=== PATIENT | female | born 1955 | race Caucasian/White ===

== ENCOUNTER 2021-11-12 07:53 | Observation (INO) | payer OTHER ==
[2021-11-12 08:25] LABS: Absolute Lymphocytes (CBC) 1.7 K/uL (0.7-4.9); Hematocrit 32.1 % (36.0-45.0); Lymphocytes % 20.3 % (15.3-44.8); RBC Red Blood Cell Count 3.77 M/uL (3.86-4.86)
[2021-11-12 08:32] LABS: SARS-CoV-2 Antigen Rapid Res Negative (Negative)
[2021-11-12 08:33] LABS: Protime INR 1.18
[2021-11-12 08:45] LABS: Albumin 2.5 g/dL (3.4-5.0); Bilirubin Direct 0.2 mg/dL (0-0.2); Bilirubin Total 0.5 mg/dL (0.2-1.0); Magnesium 1.5 mg/dL (1.8-2.4); Potassium 3.9 mmol/L (3.5-5.1); Protein, Total 6.9 g/dL (6.4-8.2); Troponin High Sensitivity 19.9 pg/mL (<58.9)
--- NOTE | 2021-11-12 08:57 | RAD REPORT ---
EXAM DESCRIPTION: Stephy Single View11/12/2021 8:20 am CLINICAL HISTORY: Chest pain COMPARISON: none FINDINGS: The lungs appear clear of acute infiltrate. The heart is normal size IMPRESSION: No acute abnormalities displayed
[2021-11-12] MEDS ORDERED: NA CHLORIDE 0.9% 1,000 ML ONE (09:08)
[2021-11-12] MEDS ORDERED: PANTOPRAZOLE 40 MG INJ ONE (09:15)
[2021-11-12] MEDS ORDERED: ENOXAPARIN 100 MG/ML SYR SQ ONE (09:15)
[2021-11-12] MEDS ORDERED: METOPROLOL TAR 50 MG TAB ONE (09:27)
[2021-11-12] MEDS ORDERED: Magnesium Sulfate 2gm IVPB 2 G/50 ML BAG IV ONE (09:27)
--- NOTE | 2021-11-12 09:46 | RAD REPORT ---
EXAM DESCRIPTION: CT - Chest For Pe Angio - 11/12/2021 9:34 am CLINICAL HISTORY: Chest pain COMPARISON: None. TECHNIQUE: Dynamically enhanced axial 3 mm thick images of the chest were obtained during administra tion of <100> mL Isovue 370 IV contrast. Coronal and oblique reconstruction images were generated and reviewed. Exam utilizes a protocol for optimal evaluation of pulmonary arterial tree. Maximum intensity projections 3D imaging was utilized All CT scans are performed using dose optimization technique as appropriate and may include automated exposure control or mA/KV adjustment according to patient size. FINDINGS: Thrombus within the distal right main pulmonary, right lower lobe, right upper lobe, right middle lobe and left lower lobe pulmonary arteries. A thoracic aortic aneurysm is not noted. A small right pleural effusion. A pericardial effusion is not seen. A lung consolidation is not present. Small left adrenal adenoma is suspected IMPRESSION: Bilateral pulmonary emboli
--- NOTE | 2021-11-12 09:54 | ER ---
Nurse's Notes [facility] Name: Yulissa Brown Age: 65 yrs Sex: Female : 1955 Arrival Date: 11/12/2021 Time: 07:56 Bed 7 Private MD: Diagnosis: Chest pain, unspecified;Essential (primary) hypertension;Type 2 diabetes mellitus with hyperglycemia;Acute embolism and thrombosis of other specified deep vein of left lower extremity;Pulmonary embolism without acute cor pulmonale-BILATERAL Presentation: 11/12 08:07 Chief complaint: Patient's son or daughter states: Reports pt c/o chest pain that began ld1 this morning. In triage pt denies chest pain. Family reporting recent D/C from hospital due to stroke, [place], sepsis. Coronavirus screen: At this time, the client does not indicate any symptoms associated with coronavirus-19. Ebola Screen: No symptoms or risks identified at this time. Initial Sepsis Screen: Does the patient meet any 2 criteria? No. Patient's initial sepsis screen is negative. Does the patient have a suspected source of infection? No. Patient's initial sepsis screen is negative. Risk Assessment: Do you want to hurt yourself or someone else? Patient reports no desire to harm self or others. Onset of symptoms was November 12, 2021. 08:07 Method Of Arrival: Ambulatory ld1 08:07 Acuity: DAFNE 3 ld1 Triage Assessment: 08:09 General: Appears in no apparent distress. comfortable, Behavior is calm, cooperative, ld1 appropriate for age. Pain: Complains of pain in chest Pain does not radiate. Pain currently is 0 out of 10 on a pain scale. at worst was 8 out of 10 on a pain scale. Quality of pain is described as sharp, shooting, throbbing, Pain began suddenly, Is intermittent. EENT: No signs and/or symptoms were reported regarding the EENT system. Neuro: Level of Consciousness is awake, alert, obeys commands, Oriented to person, place, time, situation, Appropriate for age. Cardiovascular: Capillary refill < 3 seconds Patient's skin is warm and dry. Rhythm is sinus tachycardia. Respiratory: Airway is patent Respiratory effort is even, unlabored. GI: Abdomen is round non-distended. Historical: - Allergies: 08:09 Sulfa (Sulfonamide Antibiotics); ld1 - PMHx: 08:09 Diabetes mellitus; Hypertensive disorder; Myocardial infarction; CVA; ld1 Hypercholesterolemia; - PSHx: 08:09 Tonsillectomy; ld1 - Immunization history:: Adult Immunizations up to date, Client reports receiving the 2nd dose of the Covid vaccine. - Social history:: Smoking status: Patient denies any tobacco usage or history of. Patient/guardian denies using alcohol. Screenin:05 Abuse screen: Denies threats or abuse. Denies injuries from another. jh6 08:05 Nutritional screening: No deficits noted. Tuberculosis screening: No symptoms or risk jh6 factors identified. Fall Risk Secondary diagnosis (15 points) impaired mobility, CVA, IV access (20 points). Assessment: 08:46 General: Appears in no apparent distress. Behavior is calm, cooperative, Smells of. jh6 Pain: Complains of pain in anterior aspect of left upper chest and mid-sternal area Pain does not radiate. Pain currently is 2 out of 10 on a pain scale. Quality of pain is described as sharp, Pain began suddenly, 3 hours ago. Is continuous, Aggravated by deep breath. Neuro: Level of Consciousness is awake, obeys commands. Cardiovascular: Denies shortness of breath, Heart tones present Capillary refill < 3 seconds Clubbing of nail beds is absent JVD is absent Patient's skin is warm and dry. Pulses are all present. 10:00 Reassessment: Patient and/or family updated on plan of care and expected duration. Pain jg9 level reassessed. Patient is alert, oriented x 3, equal unlabored respirations, skin warm/dry/pink. 12:00 Reassessment: No changes from previously documented assessment. Patient and/or family jg9 updated on plan of care and expected duration. Pain level reassessed. Patient is alert, oriented x 3, equal unlabored respirations, skin warm/dry/pink. Vital Signs: 08:07 BP 134 / 69; Pulse 100; Resp 18; Temp 97.6(O); Pulse Ox 93% on R/A; Weight 113.4 kg; ld1 Height 5 ft. 5 in. (165.10 cm); Pain 0/10; 08:49 BP 125 / 57; Pulse 85; Resp 17; Pulse Ox 99% ; Pain 0/10; jh6 10:30 BP 129 / 70; Pulse 88; Resp 17 S; Pulse Ox 97% ; jg9 11:30 BP 124 / 72; Pulse 86; Resp 16 S; Pulse Ox 96% on R/A; jg9 08:07 Body Mass Index 41.60 (113.40 kg, 165.10 cm) ld1 ED Course: 07:56 Patient arrived in ED. mr 08:01 Mikey Delarosa MD is Attending Physician. vicente 08:09 Triage completed. ld1 08:09 Arm band placed on right wrist. ld1 08:10 Bed in low position. Call light in reach. Side rails up X2. Adult w/ patient. jh6 08:10 Client placed on continuous cardiac and pulse oximetry monitoring. NIBP monitoring jh6 applied. playground monitor on. Pulse ox on. NIBP on. 08:14 Nenita Menjivar, RN is Primary Nurse. jh6 08:20 SARS RAPID Sent. mb7 08:20 Basic Metabolic Panel Sent. mb7 08:20 CBC with Diff Sent. mb7 08:20 Magnesium Sent. mb7 08:20 D-Dimer Sent. mb7 08:20 LFT's Sent. mb7 08:20 NT PRO-BNP Sent. mb7 08:20 PT-INR Sent. mb7 08:20 Troponin HS Sent. mb7 08:20 Lipase Sent. mb7 08:20 Inserted saline lock: 20 gauge in right forearm, using aseptic technique. Blood jh6 collected. 08:20 Initial lab(s) drawn, by mo, EKG done, by ED staff, reviewed by Mikey GIBSON jh6 swab sent to lab. Patient maintains SpO2 saturation greater than 95% on room air. Oxygen administration via nasal cannula. 08:22 XRAY Chest (1 view) In Process Unspecified. EDMS 08:51 No provider procedures requiring assistance completed. jh6 09:36 CT Chest For PE Angio In Process Unspecified. EDMS 09:51 Jose Rueda is Hospitalizing Provider. vicente 10:14 US Extremity Venous W Compression Asad In Process Unspecified. EDMS 12:34 Patient admitted, IV remains in place. jg9 Administered Medications: 08:23 Not Given (Duplicate Order; pt took asa thjis amm): Aspirin Chewable Tablet 324 mg PO jh6 once; 81 mg tablets x 4 09:03 Drug: NS 0.9% 1000 ml Route: IV; Rate: 125 ml/hr; Site: right forearm; [facility] 09:11 Drug: Lovenox (enoxaparin) 1 mg/kg Route: Sub-Q; Site: right upper abdomen; [facility] 10:57 Follow up: Response: No adverse reaction j9 09:11 Drug: Pepcid (famotidine) 20 mg Route: IVP; Site: left antecubital; [facility] 10:57 Follow up: Response: No adverse reaction j9 10:38 Drug: Magnesium Sulfate 2 grams Route: IVPB; Infused Over: 2 hrs; Site: right [facility] antecubital; 12:35 Follow up: IV Status: Completed infusion; IV Intake: 50ml j9 10:38 Drug: HEParin 33364 units {Co-Signature: ss (Josie Hilliard RN).} Route: IV; Rate: per [facility] protocol; Site: right antecubital; 12:34 Follow up: Response: No adverse reaction j9 10:56 Drug: Lopressor (metoprolol TARTRATE) 50 mg Route: PO; 9 12:29 Follow up: Response: No adverse reaction j9 Medication: 12:34 VIS not applicable for this client. j9 Intake: 12:35 IV: 50ml; Total: 50ml. j9 Outcome: 09:54 Decision to Hospitalize by Provider. vicente 12:45 Admitted to Med/surg accompanied by nurse, family with patient, via wheelchair, room jg9 209, with chart, Report called to Nita Hankins RN 12:45 Condition: stable 12:46 Patient left the ED. j9 Signatures: Dispatcher [employer] EDMikey Joyce MD MD cha Rivera, Mary mr Dibbern, Lauren, RN RN ld1 Nenita Menjivar RN RN 6 Camila Amador mb7 Nenita Dodson, RN RN jg9 Josie Hilliard RN ss Corrections: (The following items were deleted from the chart) 08:58 08:49 BP 125 / 57; Pulse 85bpm; Resp 95bpm; Pulse Ox 99%; Pain 0/10; [place] [id number]
--- NOTE | 2021-11-12 09:54 | EDPHYS ---
Physician Documentation [facility] Name: Yulissa Brown Age: 65 yrs Sex: Female : 1955 Arrival Date: 11/12/2021 Time: 07:56 Bed 7 Private MD: ED Physician Mikey Delarosa HPI: 11/12 09:42 This 65 yrs old Female presents to ER via Ambulatory with complaints of Chest vicente Pain, Shortness Of Breath, Arm Pain. Historical: - Allergies: 08:09 Sulfa (Sulfonamide Antibiotics); ld1 - PMHx: 08:09 Diabetes mellitus; Hypertensive disorder; Myocardial infarction; CVA; ld1 Hypercholesterolemia; - PSHx: 08:09 Tonsillectomy; ld1 - Immunization history:: Adult Immunizations up to date, Client reports receiving the 2nd dose of the Covid vaccine. - Social history:: Smoking status: Patient denies any tobacco usage or history of. Patient/guardian denies using alcohol. ROS: 09:48 Constitutional: Negative for fever, chills, and weight loss, Eyes: Negative for injury, vicente pain, redness, and discharge, ENT: Negative for injury, pain, and discharge, Neck: Negative for injury, pain, and swelling, Respiratory: Negative for shortness of breath, cough, wheezing, and pleuritic chest pain, Abdomen/GI: Negative for abdominal pain, nausea, vomiting, diarrhea, and constipation, Back: Negative for injury and pain, : Negative for injury, bleeding, discharge, and swelling, MS/Extremity: Negative for injury and deformity, Skin: Negative for injury, rash, and discoloration, Neuro: Negative for headache, weakness, numbness, tingling, and seizure, Psych: Negative for depression, anxiety, suicide ideation, homicidal ideation, and hallucinations, Allergy/Immunology: Negative for hives, rash, and allergies, Endocrine: Negative for neck swelling, polydipsia, polyuria, polyphagia, and marked weight changes, Hematologic/Lymphatic: Negative for swollen nodes, abnormal bleeding, and unusual bruising. 09:48 Cardiovascular: Positive for chest pain, with cough. Exam: 09:48 Constitutional: This is a well developed, well nourished patient who is awake, alert, vicente and in no acute distress. Head/Face: Normocephalic, atraumatic. Eyes: Pupils equal round and reactive to light, extra-ocular motions intact. Lids and lashes normal. Conjunctiva and sclera are non-icteric and not injected. Cornea within normal limits. Periorbital areas with no swelling, redness, or edema. ENT: Nares patent. No nasal discharge, no septal abnormalities noted. Tympanic membranes are normal and external auditory canals are clear. Oropharynx with no redness, swelling, or masses, exudates, or evidence of obstruction, uvula midline. Mucous membranes moist. Neck: Trachea midline, no thyromegaly or masses palpated, and no cervical lymphadenopathy. Supple, full range of motion without nuchal rigidity, or vertebral point tenderness. No Meningismus. Chest/axilla: Normal chest wall appearance and motion. Nontender with no deformity. No lesions are appreciated. Cardiovascular: Regular rate and rhythm with a normal S1 and S2. No gallops, murmurs, or rubs. Normal PMI, no JVD. No pulse deficits. Respiratory: Lungs have equal breath sounds bilaterally, clear to auscultation and percussion. No rales, rhonchi or wheezes noted. No increased work of breathing, no retractions or nasal flaring. Abdomen/GI: Soft, non-tender, with normal bowel sounds. No distension or tympany. No guarding or rebound. No evidence of tenderness throughout. Back: No spinal tenderness. No costovertebral tenderness. Full range of motion. Skin: Warm, dry with normal turgor. Normal color with no rashes, no lesions, and no evidence of cellulitis. MS/ Extremity: Pulses equal, no cyanosis. Neurovascular intact. Full, normal range of motion. Neuro: Awake and alert, GCS 15, oriented to person, place, time, and situation. Cranial nerves II-XII grossly intact. Motor strength 5/5 in all extremities. Sensory grossly intact. Cerebellar exam normal. Normal gait. Psych: Awake, alert, with orientation to person, place and time. Behavior, mood, and affect are within normal limits. 09:48 ECG was reviewed by the Attending Physician. Vital Signs: 08:07 BP 134 / 69; Pulse 100; Resp 18; Temp 97.6(O); Pulse Ox 93% on R/A; Weight 113.4 kg; ld1 Height 5 ft. 5 in. (165.10 cm); Pain 0/10; 08:49 BP 125 / 57; Pulse 85; Resp 17; Pulse Ox 99% ; Pain 0/10; jh6 10:30 BP 129 / 70; Pulse 88; Resp 17 S; Pulse Ox 97% ; jg9 11:30 BP 124 / 72; Pulse 86; Resp 16 S; Pulse Ox 96% on R/A; jg9 08:07 Body Mass Index 41.60 (113.40 kg, 165.10 cm) ld1 MDM: 08:01 Patient medically screened. vicente 10:12 Differential diagnosis: abnormal EKG, acute myocardial infarction, chest wall pain, vicente Cholelithiasis costochondritis, pancreatitis, pneumonia, pulmonary embolus, stable angina, unstable angina. HEART Score: History: Moderately Suspicious (1), ECG: Non specific repolarization disturbance / LBTB / PM (1), Age: > or = 65 years (2), Risk Factors: > or = 3 Risk factors for atherosclerotic disease (2), [Hypercholesterolemia] [Hypertension] [DM] [+ Family HX] [Obesity] Troponin: < or = 1 x Normal Limit (0), Total Score = 6. The patient was given aspirin in the Emergency Department. The patient's deep vein thrombosis risk score was calculated as follows: the patient has paralysis, paresis, or recent immobilization of the lower extremities (1.0 Pts) the patient has localized tenderness along the distribution of the deep venous system (1.0 Pts) Total Score: 1 to 2 points. This patient was found to be at moderate risk for a deep vein thrombosis by using the Well's assessment criteria. The patient's pulmonary embolism risk score was calculated as follows: suspected deep vein thrombosis (3 Pts) patient has experienced immobilization or surgery in the last four weeks (1.5 Pts) Total Score: 3-6 points. This patient was found to be at moderate risk for a pulmonary embolism by using the Well's assessment criteria. ASUNCION Risk Score: 1 - patient's age is greater or equal to 65 years, 1 - Three or more CAD risk factors, 1- Known CAD, TOTAL SCORE = 3. Data reviewed: vital signs, nurses notes, lab test result(s), EKG, radiologic studies, CT scan, plain films. 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 Test interpretation: by ED physician or midlevel provider: ECG, plain radiologic studies. Counseling: I had a detailed discussion with the patient and/or guardian regarding: the historical points, exam findings, and any diagnostic results supporting the discharge/admit diagnosis, lab results, radiology results, the need for further work-up and treatment in the hospital. 11/12 08:02 Order name: Basic Metabolic Panel; Complete Time: 09:11 [facility] 11/12 08:02 Order name: CBC with Diff; Complete Time: 09:11 [facility] 11/12 08:02 Order name: D-Dimer; Complete Time: 09:11 [facility] 11/12 08:02 Order name: LFT's; Complete Time: : [facility] 11/12 08:02 Order name: Magnesium; Complete Time: : [facility] 11/12 08:02 Order name: NT PRO-BNP; Complete Time: 09:11 [facility] 11/12 08:02 Order name: PT-INR; Complete Time: 09:11 [facility] 11/12 08:02 Order name: Troponin HS; Complete Time: 09:11 [facility] 11/12 08:02 Order name: XRAY Chest (1 view); Complete Time: 09:11 [facility] 11/12 08:02 Order name: Lipase; Complete Time: 09:11 [facility] 11/12 08:02 Order name: SARS RAPID; Complete Time: 09:11 [facility] 11/12 08:56 Order name: CT Chest For PE Angio; Complete Time: 10:11 11/12 08:57 Order name: US Extremity Venous W Compression Asad ss 11/12 08:02 Order name: EKG; Complete Time: 08:05 [facility] 11/12 08:02 Order name: Cardiac monitoring; Complete Time: 08:22 [facility] 11/12 08:02 Order name: EKG - Nurse/Tech; Complete Time: 08:14 [facility] 11/12 08:02 Order name: IV Saline Lock; Complete Time: 08:22 [facility] 11/12 08:02 Order name: Labs collected and sent; Complete Time: 08:22 [facility] 11/12 08:02 Order name: O2 Per Protocol; Complete Time: 08:14 [facility] 11/12 08:02 Order name: O2 Sat Monitoring; Complete Time: 08:14 [facility] EC:48 Rate is 93 beats/min. Rhythm is regular. QRS [place] is Normal. [place] interval is normal. QRS vicente interval is normal. QT interval is normal. No Q waves. T waves are Inverted in leads I, aVL, V5, V6. No ST changes noted. Clinical impression: No evidence of ischemia. Interpreted by me. Reviewed by me. Administered Medications: 08:23 Not Given (Duplicate Order; pt took asa baylee amm): Aspirin Chewable Tablet 324 mg PO [facility] once; 81 mg tablets x 4 09:03 Drug: NS 0.9% 1000 ml Route: IV; Rate: 125 ml/hr; Site: right forearm; [facility] 09:11 Drug: Lovenox (enoxaparin) 1 mg/kg Route: Sub-Q; Site: right upper abdomen; [facility] 10:57 Follow up: Response: No adverse reaction j9 09:11 Drug: Pepcid (famotidine) 20 mg Route: IVP; Site: left antecubital; [facility] 10:57 Follow up: Response: No adverse reaction j9 10:38 Drug: Magnesium Sulfate 2 grams Route: IVPB; Infused Over: 2 hrs; Site: right [facility] antecubital; 12:35 Follow up: IV Status: Completed infusion; IV Intake: 50ml j9 10:38 Drug: HEParin 23524 units {Co-Signature: ss (Josie Hilliard RN).} Route: IV; Rate: per [facility] protocol; Site: right antecubital; 12:34 Follow up: Response: No adverse reaction j9 10:56 Drug: Lopressor (metoprolol TARTRATE) 50 mg Route: PO; j9 12:29 Follow up: Response: No adverse reaction 9 Disposition Summary: 11/12/21 09:54 Hospitalization Ordered Provider: Jose Rueda cha Condition: Fair vicente Problem: new vicente Symptoms: have improved vicente Bed/Room Type: Standard vicente Hospitalization Status: Inpatient Admission(11/12/21 10:17) vicente Location: Telemetry/MedSurg (Inpatient)(11/12/21 10:17) vicente Room Assignment: [facility](11/12/21 12:06) dw Diagnosis - Chest pain, unspecified vicente - Essential (primary) hypertension vicente - Type 2 diabetes mellitus with hyperglycemia vicente - Acute embolism and thrombosis of other specified deep vein of left lower extremity vicente - Pulmonary embolism without acute cor pulmonale - BILATERAL vicente Forms: - Medication Reconciliation Form vicente - SBAR form [facility] Signatures: Dispatcher [employer] Gayathri Lanier RN RN Mikey Eli MD MD cha Dibbern, Lauren RN RN ld1 Nenita Menjivar RN RN jh6 Nenita Dodson, MAYA RN jg9 Josie Hilliard RN ss Corrections: (The following items were deleted from the chart) : 09:54 Observation [facility] 09:54 Telemetry/MedSurg (observation) [facility] 10: 09:54 [facility] 12:06 10:17 [facility] 12:44 11:07 Misc. Order ordered. vicente jg9
[2021-11-12] MEDS ORDERED: HEPARIN 5000 UNIT/ML 1 ML VIAL ONE (10:45)
--- NOTE | 2021-11-12 10:59 | RAD REPORT ---
EXAM DESCRIPTION: USExtrem Venous W Compress Bil11/12/2021 10:12 am CLINICAL HISTORY: Leg pain COMPARISON: none FINDINGS: The right common femoral, superficial femoral, popliteal and posterior tibial veins bilate rally are compressible and demonstrate augmentation. Doppler demonstrates good flow. Echogenic material consistent with acute thrombus is present within the left common femoral and great er saphenous veins. Veins are not compressible Left superficial femoral, left popliteal and left posterior tibial veins are Grayscale, color and spectral analysis performed on all vessels IMPRESSION: Acute thrombus left common femoral and left greater saphenous veins
--- NOTE | 2021-11-12 12:03 | P.HP ---
Certification for Inpatient Patient admitted to: Observation With expected LOS: <2 Midnights Practitioner: I am a practitioner with admitting privileges, knowledge of patient current condition, hospital course, and medical plan of care. Services: Services provided to patient in accordance with Admission requirements found in Title 42 Section 412.3 of the Code of Federal Regulations Patient History Date of Service: 11/12/21 Reason for admission: Chest pain History of Present Illness: 65-year-old man with a history of ME in the past, hypertension, CVA recent hospitalization presented to the emergency department with a complaint of chest pain with associated shortness of breath. Symptoms also associated with coughing and wheezing. Patient denied any fever. She described chest pain worse with deep breathing and coughing. Patient is aphasic and cannot provide much history. Work-up in the emergency department with CT angiogram shows patient has bilateral pulm embolism. Venous Doppler of lower extremities also demonstrate left lower extremity DVT. Troponin is negative. Patient given full dose Lovenox and hospitalized for further management. Allergies Sulfa (Sulfonamide Antibiotics) Allergy (Verified 11/12/21 12:46) Itching/Hives/Rash sulfa Allergy (Uncoded 11/12/21 12:46) Itching/Hives/Rash Home Medications: Amlodipine [Norvasc] 10 mg PO DAILY 11/12/21 Aspirin Chewable [Aspirin Chewable*] 81 mg PO DAILY 11/12/21 Atorvastatin Calcium [Lipitor] 40 mg PO BEDTIME 11/12/21 Cholecalciferol (Vitamin D3) [Vitamin D3] 1,000 unit PO DAILY 11/12/21 Diclofenac Sodium [Voltaren Arthritis Pain] 20 gm TP QID 11/12/21 Docusate Sodium 100 mg PO BID 11/12/21 Gabapentin 300 mg PO BEDTIME 11/12/21 Hydrocodone 10/APAP 325 [[place] 10/325*] 10 mg PO Q6HR PRN 11/12/21 Insulin Glargine,Hum.rec.anlog [Insulin Glargine] 21 unit SQ BEDTIME 11/12/21 Insulin Lispro [Humalog] 2 unit SQ TID 11/12/21 Lisinopril [Zestril] 10 mg PO DAILY 11/12/21 - Past Medical/Surgical History -: Diabetes mellitus type 2 -: Hypertension -: ME -: CVA -: Hyperlipidemia - Family History Family History: Reviewed- Non-Contributory - Social History Smoking Status: Never smoker Alcohol use: No CD- Drugs: No Place of Residence: Home Review of Systems Other: Patient denied any fever, any nausea or vomiting or abdominal pain. Cough is nonproductive. Except as documented, all other systems reviewed and negative. Physical Examination - Physical Exam General: Alert, In no apparent distress, Oriented x3 HEENT: PERRLA, Mucous membr. moist/pink, Sclerae nonicteric Neck: Supple, JVD not distended Respiratory: Clear to auscultation bilaterally, Normal air movement Cardiovascular: Regular rate/rhythm, Normal S1 S2, No murmurs, Edema (Trace bilateral lower extremity edema) Capillary refill: <2 Seconds Gastrointestinal: Normal bowel sounds, Soft and benign, Non-distended, No tenderness Musculoskeletal: No swelling, No tenderness Neurological: Normal strength at 5/5 x4 extr, Cranial nerves 3-12 intact, Other (Aphasic) - Studies Laboratory Data (last 24 hrs) 11/12/21 08:18: PT 13.0 H, INR 1.18 11/12/21 08:18: WBC 8.3, Hgb 10.6 L, Hct 32.1 L, Plt Count 375 11/12/21 08:18: Sodium 140, Potassium 3.9, BUN 11, Creatinine 0.93, Glucose 123 H, Magnesium 1.5 L, Total Bilirubin 0.5, AST 18, ALT 18, Alkaline Phosphatase 107, Lipase 149 Assessment and Plan - Problems (Diagnosis) (1) Acute pulmonary embolism Current Visit: Yes Status: Acute (2) Left leg DVT Current Visit: Yes Status: Acute (3) Chest pain Current Visit: Yes Status: Acute (4) History of CVA (cerebrovascular accident) Current Visit: Yes Status: Acute (5) History of ME (myocardial infarction) Current Visit: Yes Status: Acute (6) Hypertension Current Visit: Yes Status: Acute (7) COPD (chronic obstructive pulmonary disease) Current Visit: Yes Status: Acute - Plan Place patient under observation on the medical floor. Continue full dose Lovenox. Vitals are stable. Right heart strain very unlikely Supportive measures-pain management Bronchodilators as needed. Reconcile and continue home medications-antihypertensives. Continue aspirin. - Advance Directives Does patient have a Living Will: No Does patient have a Durable POA for Healthcare: No
[2021-11-12] MEDS ORDERED: ALBUTEROL 2.5 MG/3 ML NEB SOL NEB PRN (13:20)
[2021-11-12] MEDS ORDERED: ACETAMINOPHEN 500 MG TAB PO PRN (13:20)
[2021-11-12] MEDS ORDERED: ONDANSETRON 4 MG/2 ML VIAL IV PRN (13:20)
[2021-11-12] MEDS ORDERED: HYDROCODONE/APAP 5/325 MG TAB PO PRN (13:20)
[2021-11-12 13:41] VITALS: BMI 41.5
[2021-11-12] MEDS: INSULIN -REGULAR HUMAN 50 UNIT/0.5 ML ML SQ SCH ×2 (16:30→21:00)
[2021-11-12] MEDS: HYDROCODONE/APAP 10/325 TAB PO PRN (18:24)
[2021-11-12] MEDS: IPRATROPIUM BROM 0.5MG/2.5ML NEB SCH (19:54)
[2021-11-12] MEDS ORDERED: INSULIN GLARGINE 100 UNIT/ML SQ SCH (21:00)
[2021-11-12] MEDS: DICLOFENAC TOP SCH (21:00)
[2021-11-12] MEDS ORDERED: GABAPENTIN 300 MG CAP PO SCH (21:00)
[2021-11-12] MEDS ORDERED: ATORVASTATIN 40 MG TAB PO SCH (21:00)
[2021-11-12] MEDS: DOCUSATE NA 100 MG CAP PO SCH (22:04)
[2021-11-12] MEDS: Enoxaparin 120 MG/0.8 ML SYR SQ SCH (22:04)
[2021-11-12] MEDS: INSULIN LISPRO 100 UNIT/1 ML SQ SCH (22:04)
[2021-11-13] MEDS: IPRATROPIUM BROM 0.5MG/2.5ML NEB SCH ×2 (03:50→08:00)
[2021-11-13 03:56] LABS: Absolute Lymphocytes (CBC) 1.9 K/uL (0.7-4.9); Lymphocytes % 18.3 % (15.3-44.8); MCV 85.8 fL (80-100); MPV 8.5 fL (7.6-11.3); RBC Red Blood Cell Count 3.84 M/uL (3.86-4.86)
[2021-11-13 04:17] LABS: Phosphorus 3.2 mg/dL (2.5-4.9); Potassium 3.7 mmol/L (3.5-5.1)
[2021-11-13] MEDS: HYDROCODONE/APAP 10/325 TAB PO PRN (04:33)
[2021-11-13] MEDS: INSULIN -REGULAR HUMAN 50 UNIT/0.5 ML ML SQ SCH (07:30)
[2021-11-13 08:56] VITALS: O2SAT 96
[2021-11-13] MEDS ORDERED: AMLODIPINE 10 MG TAB PO SCH (09:00)
[2021-11-13] MEDS ORDERED: POTASSIUM CL SA 10 MEQ TAB PO ONE (09:00)
[2021-11-13] MEDS ORDERED: lisinopriL 10 MG TAB PO SCH (09:00)
[2021-11-13] MEDS ORDERED: VITAMIN D 1000 UNIT TAB PO SCH (09:00)
[2021-11-13] MEDS: DICLOFENAC TOP SCH (09:00)
[2021-11-13] MEDS ORDERED: ASPIRIN 81 MG CHEWABLE TABLET PO SCH (09:00)
[2021-11-13] MEDS: Enoxaparin 120 MG/0.8 ML SYR SQ SCH (09:56)
[2021-11-13] MEDS: DOCUSATE NA 100 MG CAP PO SCH (09:56)
[2021-11-13] MEDS: INSULIN LISPRO 100 UNIT/1 ML SQ SCH (10:09)
[2021-11-13 12:08] VITALS: BP 156/65; TEMP 98.3
--- NOTE | 2021-11-13 12:13 | P.DS ---
Admission Date: 11/12/21 Discharge Date: 11/13/21 Disposition: DC HOME/HOME HEALTH CARE Discharge Condition: FAIR Reason for Admission: Chest pain - Problems (1) Acute pulmonary embolism Current Visit: Yes Status: Acute (2) Left leg DVT Current Visit: Yes Status: Acute (3) Chest pain Current Visit: Yes Status: Acute (4) History of CVA (cerebrovascular accident) Current Visit: Yes Status: Acute (5) History of CT (myocardial infarction) Current Visit: Yes Status: Acute (6) Hypertension Current Visit: Yes Status: Acute (7) COPD (chronic obstructive pulmonary disease) Current Visit: Yes Status: Acute Brief History of Present Illness: 65-year-old man with a history of CT in the past, hypertension, CVA recent hospitalization presented to the emergency department with a complaint of chest pain with associated shortness of breath. Symptoms also associated with coughing and wheezing. Patient denied any fever. She described chest pain worse with deep breathing and coughing. Patient is aphasic and cannot provide much history. Work-up in the emergency department with CT angiogram shows patient has bilateral pulm embolism. Venous Doppler of lower extremities also demonstrated left lower extremity DVT. Troponin negative. Patient given full dose Lovenox and hospitalized for further management. Hospital Course: Patient placed under observation on the medical floor and treated with full dose Lovenox. Patient was not hypoxic on room air, vital stable. No issues overnight. She is clinically stable for discharge. Patient is discharged with Eliquis DVT dosing. Her other medications including aspirin for prior history of CVA were continued during the hospital stay. Vital Signs/Physical Exam: Temp Pulse Resp BP Pulse Ox 98.3 F 85 18 156/65 H 94 11/13/21 12:00 11/13/21 12:00 11/13/21 12:00 11/13/21 12:00 11/13/21 12:00 General: Alert, In no apparent distress, Oriented x3 HEENT: Mucous membr. moist/pink Neck: JVD not distended Respiratory: Clear to auscultation bilaterally, Normal air movement Cardiovascular: No edema, Regular rate/rhythm, Normal S1 S2 Gastrointestinal: Soft and benign, Non-distended, No tenderness Musculoskeletal: No swelling, No tenderness Integumentary: No rashes, No erythema Neurological: Normal strength at 5/5 x4 extr, Other (Aphasic) Laboratory Data at Discharge: WBC 10.5 K/uL (4.3-10.9) D 11/13/21 03:30 Hgb 11.0 g/dL (12.0-15.0) L 11/13/21 03:30 Hct 33.0 % (36.0-45.0) L 11/13/21 03:30 Plt Count 381 K/uL (152-406) 11/13/21 03:30 PT 13.0 SECONDS (9.5-12.5) H 11/12/21 08:18 INR 1.18 11/12/21 08:18 Sodium 137 mmol/L (136-145) 11/13/21 03:30 Potassium 3.7 mmol/L (3.5-5.1) 11/13/21 03:30 BUN 9 mg/dL (7-18) 11/13/21 03:30 Creatinine 0.81 mg/dL (0.55-1.3) 11/13/21 03:30 Glucose 123 mg/dL (74-106) H 11/13/21 03:30 Phosphorus 3.2 mg/dL (2.5-4.9) 11/13/21 03:30 Magnesium 2.0 mg/dL (1.8-2.4) D 11/13/21 03:30 Total Bilirubin 0.5 mg/dL (0.2-1.0) 11/12/21 08:18 AST 18 U/L (15-37) 11/12/21 08:18 ALT 18 U/L (12-78) 11/12/21 08:18 Alkaline Phosphatase 107 U/L (45-117) 11/12/21 08:18 Lipase 149 U/L (73-393) 11/12/21 08:18 Home Medications: Amlodipine [Norvasc*] 10 mg PO DAILY 11/12/21 Aspirin Chewable [Aspirin Chewable*] 81 mg PO DAILY 11/12/21 Atorvastatin Calcium [Lipitor] 40 mg PO BEDTIME 11/12/21 Cholecalciferol (Vitamin D3) [Vitamin D3] 1,000 unit PO DAILY 11/12/21 Diclofenac Sodium [Voltaren Arthritis Pain] 20 gm TP QID 11/12/21 Docusate Sodium 100 mg PO BID 11/12/21 Gabapentin 300 mg PO BEDTIME 11/12/21 Hydrocodone 10/APAP 325 [[place] 10/325*] 10 mg PO Q6HR PRN 11/12/21 Insulin Glargine,Hum.rec.anlog [Insulin Glargine] 21 unit SQ BEDTIME 11/12/21 Insulin Lispro [Humalog] 2 unit SQ TID 11/12/21 Lisinopril [Zestril] 10 mg PO DAILY 11/12/21 Apixaban [Eliquis] 5 mg PO BID #74 11/13/21 Budesonide/Formoterol Fumarate [Symbicort 160-4.5 Mcg Inhaler] 1 puff IH BID #1 inhaler 11/13/21 New Medications: Apixaban [Eliquis] 5 mg PO BID #74 Budesonide/Formoterol Fumarate [Symbicort 160-4.5 Mcg Inhaler] 1 puff IH BID #1 inhaler Diet: ADA Activity: Fall precautions Followup: OOT,OOT [Primary Care Provider] - 1-2 Weeks
--- NOTE | 2021-11-15 08:23 | EKG ---
Test Date: 2021-11-12 Test Time: 08:14:20 Truck Striker: AMANUEL MEASUREMENT RESULTS: Intervals: Rate: 93 GA: 222 QRSD: 110 QT: 376 QTc: 467 [place]: P: 43 GA: 222 QRS: 21 T: 137 INTERPRETIVE STATEMENTS: Sinus rhythm with 1st degree AV block Incomplete left bundle branch block ST & T wave abnormality, consider lateral ischemia Abnormal ECG No previous ECG available for comparison Electronically Signed On 11-15-21 08:12:39 CDT by Du Auguste
== END 2021-11-13 13:10 | disposition home health service (06) ==
LOC: ER 07:53 → ERHOLD 11:51 → 2ND 12:24
PROVIDERS: ADMIT Internal Medicine; ATTEND Internal Medicine
DX: I26.99 Other pulmonary embolism without acute cor pulmonale (principal); I82.402 Acute embolism and thrombosis of unspecified deep veins of left lower extremity; I10 Essential (primary) hypertension; R47.01 Aphasia; E78.5 Hyperlipidemia, unspecified; J44.9 Chronic obstructive pulmonary disease, unspecified; I25.2 Old myocardial infarction; E11.65 Type 2 diabetes mellitus with hyperglycemia; E78.00 Pure hypercholesterolemia, unspecified; Z79.82 Long term (current) use of aspirin; Z79.4 Long term (current) use of insulin; Z79.899 Other long term (current) drug therapy; Z88.2 Allergy status to sulfonamides; Z86.73 Personal history of transient ischemic attack (TIA), and cerebral infarction without residual deficits
CPT/HCPCS: 93005; 85025 ×2; 80048 ×2; 36415; 83735 ×2; 84100; 85610; 82947 ×5; 85379; 80076; 84484; 83690; 83880; 71275; 71045; 93970; 94760 ×3; 96372; 99285; 87811; Q9967; J1644; J1815 ×2; C9113; J1650 ×3; J3475; J7030; G0378 ×3

== ENCOUNTER 2022-01-16 11:45 | Day surgery (SDC) | payer BC, OTHER ==
--- NOTE | 2022-01-13 11:39 | EKG ---
Test Date: 2022-01-13 Test Time: 11:27:24 Outreach And Education Social Worker: JOSE MEASUREMENT RESULTS: Intervals: Rate: 64 CT: 240 QRSD: 110 QT: 416 QTc: 429 [place]: P: 65 CT: 240 QRS: -13 T: 147 INTERPRETIVE STATEMENTS: Sinus rhythm with 1st degree AV block Left ventricular hypertrophy with repolarization abnormality Abnormal ECG Compared to ECG 11/12/2021 08:14:20 Left ventricular hypertrophy now present Early repolarization now present Left bundle-branch block no longer present ST (T wave) deviation no longer present Possible ischemia no longer present Electronically Signed On 01-13-22 11:38:40 CDT by Du Auguste
[2022-01-13 11:45] LABS: Absolute Lymphocytes (CBC) 2.9 K/uL (0.7-4.9); Hematocrit 38.1 % (36.0-45.0); Lymphocytes % 26.3 % (15.3-44.8); MCV 83.5 fL (80-100); MPV 8.8 fL (7.6-11.3); RBC Red Blood Cell Count 4.56 M/uL (3.86-4.86)
[2022-01-13 12:11] LABS: SARS-CoV-2 Antigen Rapid Res Negative (Negative)
[2022-01-13 12:14] LABS: Protime INR 1.21
[2022-01-13 12:39] LABS: Potassium 4.7 mmol/L (3.5-5.1)
[~2022-01-16 11:45] MED LIST: HEPA 1000U/500MLS 2,000 UNIT/1,000 ML BAG IV ONE; LIDOCAINE 1% MPF 30 ML VIAL ONE
[2022-01-16] MEDS ORDERED: NA CHLORIDE 0.9% 500 ML ONE (13:25)
[2022-01-16] MEDS ORDERED: ATROPINE SULF 1 MG/10 ML SYR IV ONE (13:31)
[2022-01-16] MEDS ORDERED: FENTANYL CITR 100 MCG/2 ML ONE (13:31)
[2022-01-16] MEDS ORDERED: MIDAZOLAM HCL 2 MG/2 ML INJ ONE (13:31)
[2022-01-16 16:45] VITALS: BP 161/66; O2SAT 97
--- NOTE | 2022-01-16 22:34 | OP ---
Date of Procedure: 01/16/2022 Surgeon: JOHAN MURILLO Procedure Performed: Selective bilateral carotid angiogram. Indications: Severe carotid stenosis, history of CVA in the recent past. Bleeding: Less than 10 mL. Access: Right femoral artery 6-Tunisian closed with 6-Tunisian Angio-Seal. Complications: None. Description Of Procedure: After risks, benefits, alternatives were explained, patient agreed to proc edure and signed informed consent. Patient was brought into the cardiac catheterization laboratory, prepped and draped in sterile fashion. We used fentanyl, Versed in incremental doses to achieve adeq uate moderate sedation. Total sedation time was 20 minutes. Then, using an ultrasound guidance, flu oroscopy, and micropuncture kit accessed right femoral artery and placed 6-Tunisian [place] sheath and took a 6-Tunisian JR4 catheter in the aortic root, engaged the right common carotid artery, took stand payton views, and then the left common carotid artery, took standard views and then removed the catheter and the sheath and placed a 6-Tunisian Angio-Seal for closure with good hemostasis. Findings: 1.Right common carotid artery is normal, right internal carotid artery is normal, right external car otid artery is normal. 2.Left common carotid artery is normal. The left internal carotid artery ostially, there is 99% teddy nosis, but still with ASUNCION-3 flow in the vessel. The left external carotid artery is normal. Conclusion: Critical ostial left internal carotid artery stenosis. Plan: We will plan for urgent endarterectomy to be done this week. /GILMAR Voice ID: [id number] Report ID: [id number]
== END 2022-01-16 16:20 | disposition home or self-care (01) ==
LOC: CCL 11:45
PROVIDERS: ATTEND Internal Medicine
DX: I65.22 Occlusion and stenosis of left carotid artery (principal); I10 Essential (primary) hypertension; I26.99 Other pulmonary embolism without acute cor pulmonale; I25.2 Old myocardial infarction; Z79.899 Other long term (current) drug therapy; Z88.2 Allergy status to sulfonamides; Z86.73 Personal history of transient ischemic attack (TIA), and cerebral infarction without residual deficits; Z20.822 Contact with and (suspected) exposure to COVID-19
CPT/HCPCS: 93005; 85025; 80048; 36415; 85610; 82947; 85730; 36222; 76937; 87811; C1893; C1760; G0269; J2250; J3010; J7040; J1644